=== PATIENT | female | born 1960 | race Caucasian/White ===

== ENCOUNTER 2019-06-03 18:02 | Emergency (ER) | payer BC ==
[2019-06-03 18:26] VITALS: BP 185/93; PULSE 72
--- NOTE | 2019-06-03 20:35 | EDM.PDOC ---
ED HPI GENERAL MEDICAL PROBLEM - General Chief Complaint: Cardiovascular Problem Stated Complaint: BLOOD PRESSURE Time Seen by Provider: 06/03/19 18:52 Source of Information: Reports: Patient History Limitations: Reports: No Limitations - History of Present Illness INITIAL COMMENTS - FREE TEXT/NARRATIVE: The patient presents with elevated blood pressure. She has a history of hypertension. She had her meds changed yesterday from coreg and losartan to losartan and HCTZ. Her blood pressures have been in the 180s. She did have headaches but that is better. She has some tightness in her chest at times but no shortness of breath. She has no numbness or weakness. She has no fever, chills, cough, nausea, vomiting or abdominal pain. Onset: Gradual Duration: Day(s): Location: Reports: Chest Quality: Reports: Pressure Severity: Mild Improves with: Reports: None Worsens with: Reports: None Associated Symptoms: Reports: Chest Pain, Headaches. Denies: Cough, Fever/ Chills, Shortness of Breath - Related Data Allergies Allergy/AdvReac Type Severity Reaction Status Date / Time Onvngpk-Raf-Qoj Reductase AdvReac Muscle Verified 06/03/19 18:26 Inhibitor Weakness Home Meds: Home Meds Aspirin [Halfprin] 81 mg PO DAILY 02/23/18 [History] Multivitamin [Multi-Vitamin Daily] 1 each PO DAILY 02/23/18 [History] Empagliflozin [Jardiance] 25 mg PO DAILY #30 tablet 02/24/18 [Rx] Liraglutide [Victoza 3-Beau] 18 mg .XX ASDIRECTED #1 pen 02/24/18 [Rx] [place]-3 Fatty Acids/DHA/EPA [[place]ga-3 Softgel] 1 each PO ASDIRECTED #30 capsule 02/24/18 [Rx] Escitalopram [Lexapro] 20 mg PO DAILY 06/03/19 [History] Losartan/Hydrochlorothiazide [Losartan-HCTZ 50-12.5 MG] 1 tab PO DAILY 06/03/19 [History] Past Medical History Cardiovascular History: Reports: High Cholesterol, Hypertension, DC Genitourinary History: Reports: UTI, Recurrent 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 (See Below) Other UTILITY AIRCREWMAN History: hysterectomy Musculoskeletal History: Reports: Neck Pain, Chronic Oncologic (Cancer) History: Reports: Other (See Below) Other Oncologic History: skin canecer Dermatologic History: Reports: Other (See Below) Other Dermatologic History: 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, olfactory nerve ca - Past Surgical History HEENT Surgical History: Reports: Eye Surgery, Other (See Below) Other HEENT Surgeries/Procedures: stents placed in eyes Cardiovascular Surgical History: Reports: Coronary Artery Stent Female Surgical History: Reports: Hysterectomy Social & Family History - Family History Family Medical History: Noncontributory - Tobacco Use Smoking Status *Q: Current Every Day Smoker Years of Tobacco use: 40 Packs/Tins Daily: 0.6 Used Tobacco, but Quit: No - Caffeine Use Caffeine Use: Reports: Soda Other Caffeine Use: ice tea - Recreational Drug Use Recreational Drug Use: No ED ROS GENERAL - Review of Systems Review Of Systems: See Below Constitutional: Reports: No Symptoms HEENT: Reports: No Symptoms Respiratory: Reports: No Symptoms Cardiovascular: Reports: Chest Pain Endocrine: Reports: No Symptoms GI/Abdominal: Reports: No Symptoms : Reports: No Symptoms Musculoskeletal: Reports: No Symptoms Neurological: Reports: Headache ED EXAM, GENERAL - Physical Exam Exam: See Below Exam Limited By: No Limitations General Appearance: Alert, No Apparent Distress Ears: Normal External Exam Nose: Normal Inspection Head: Atraumatic, Normocephalic Neck: Normal Inspection Respiratory/Chest: No Respiratory Distress, Lungs Clear, Normal Breath Sounds Cardiovascular: Regular Rate, Rhythm, No Edema, No Murmur GI/Abdominal: Soft, Non-Tender, No Organomegaly, No Mass Back Exam: Normal Inspection Extremities: Normal Inspection Neurological: Alert, Oriented, No Motor/Sensory Deficits EKG INTERPRETATION EKG Date: 06/03/19 Time: 19:32 Rhythm: NSR Rate (Beats/Min): 71 Hopkins: LAD-Left Hopkins Deviation P-Wave: Present QRS: Normal ST-T: Normal QT: Normal Course - Vital Signs Last Recorded V/S: Last Vital Signs Temp 96.5 F 06/03/19 18:22 Pulse 72 06/03/19 18:22 Resp 16 06/03/19 18:22 BP 185/93 H 06/03/19 18:22 Pulse Ox 95 06/03/19 18:22 - Orders/Labs/Meds Orders: Active Orders 24 hr Category Date Time Status Cardiac Monitoring [RC] . DIRECTED Care 06/03/19 19:04 Active EKG Documentation Completion [RC] STAT Care 06/03/19 19:04 Active Labs: Laboratory Tests 06/03/19 06/03/19 Range/Units 19:15 19:15 WBC 7.00 (3.98-10.04) K/mm3 RBC 4.98 (3.98-5.22) M/mm3 Hgb 14.5 (11.2-15.7) gm/dl Hct 41.8 (34.1-44.9) % MCV 83.9 (79.4-94.8) fl MCH 29.1 (25.6-32.2) pg MCHC 34.7 (32.2-35.5) g/dl RDW Std Deviation 38.4 (36.4-46.3) fL Plt Count 249 (182-369) K/mm3 MPV 8.6 L (9.4-12.3) fl Neut % (Auto) 54.8 (34.0-71.1) % Lymph % (Auto) 34.6 (19.3-51.7) % [place] % (Auto) 6.9 (4.7-12.5) % Eos % (Auto) 3.0 (0.7-5.8) Baso % (Auto) 0.6 (0.1-1.2) % Neut # (Auto) 3.84 (1.56-6.13) K/mm3 Lymph # (Auto) 2.42 (1.18-3.74) K/mm3 [place] # (Auto) 0.48 H (0.24-0.36) K/mm3 Eos # (Auto) 0.21 (0.04-0.36) K/mm3 Baso # (Auto) 0.04 (0.01-0.08) K/mm3 Sodium 142 (136-145) mEq/L Potassium 3.7 (3.5-5.1) mEq/L Chloride 103 (98-107) mEq/L Carbon Dioxide 30 (21-32) mEq/L Anion Gap 12.7 (5-15) BUN 16 (7-18) mg/dL Creatinine 0.8 (0.55-1.02) mg/dL Est Cr Clr Drug Dosing TNP Estimated GFR (MDRD) > 60 (>60) mL/min BUN/Creatinine Ratio 20.0 H (14-18) Glucose 90 (74-106) mg/dL Calcium 9.7 (8.5-10.1) mg/dL Total Bilirubin 0.9 (0.2-1.0) mg/dL AST 25 (15-37) U/L ALT 49 (14-59) U/L Alkaline Phosphatase 94 (46-116) U/L Troponin I < 0.017 (0.00-0.056) ng/mL Total Protein 7.5 (6.4-8.2) g/dl Albumin 4.1 (3.4-5.0) g/dl Globulin 3.4 gm/dL Albumin/Globulin Ratio 1.2 (1-2) - Re-Assessments/Exams Free Text/Narrative Re-Assessment/Exam: 06/03/19 20:34 I ordered an EKG and labs. Her EKG shows a NSR with no acute changes. Her CBC and CMP look good. Her troponin is negative. Her blood pressure did come down nicely into the 150s. I will have her keep taking her blood pressure medication. Departure - Departure Time of Disposition: 20:35 Disposition: Home, Self-Care 01 Condition: Good Clinical Impression: Hypertension Qualifiers: Hypertension type: unspecified Qualified Code(s): I10 - Essential (primary) hypertension Referrals: PCP,Not In Area [Primary Care Provider] - Additional Instructions: Keep taking your medication as prescribed. Periodically check your blood pressure. Please return if the top number is greater then 200 or the bottom number is greater then 120 or if you have symptoms such as headache, chest pain , shortness of breath, numbness or weakness. Follow up with your doctor in 1 week. - My Orders Last 24 Hours: My Active Orders 06/03/19 19:04 Cardiac Monitoring [RC] . DIRECTED EKG Documentation Completion [RC] STAT - Assessment/Plan Last 24 Hours: My Active Orders 06/03/19 19:04 Cardiac Monitoring [RC] . DIRECTED EKG Documentation Completion [RC] STAT
== END 2019-06-03 20:54 | disposition home or self-care (01) ==
LOC: JD.ED 18:02
DX: I10 Essential (primary) hypertension (principal); I25.2 Old myocardial infarction; F17.210 Nicotine dependence, cigarettes, uncomplicated; Z88.8 Allergy status to other drugs, medicaments and biological substances; Z85.828 Personal history of other malignant neoplasm of skin; Z79.899 Other long term (current) drug therapy; Z95.5 Presence of coronary angioplasty implant and graft; Z79.82 Long term (current) use of aspirin
CPT/HCPCS: 36415; 80053; 84484; 85025; 93005; 99285-25